=== PATIENT | female | born 1985 | race Caucasian/White ===

== ENCOUNTER 2018-01-01 10:59 | Emergency (ER) | payer MEDICAID ==
[2018-01-01] MEDS: IBUPROFEN 600 MG TAB PO (12:34)
== END 2018-01-01 14:43 | disposition left against medical advice (07) ==
LOC: FTE 14:43
DX: S90.122A Contusion of left lesser toe(s) without damage to nail, initial encounter (principal); X58.XXXA Exposure to other specified factors, initial encounter; Y92.9 Unspecified place or not applicable
CPT/HCPCS: 73630; 73630-LT; 99283-25